=== PATIENT | male | born 1965 | race Caucasian/White ===

== ENCOUNTER 2019-11-20 16:54 | Emergency (ER) | payer OTHER, SELFPAY ==
--- NOTE | ~2019-11-20 | XR_ITS ---
XR elbow RT min 3V 11/20/2019 17:17 INDICATION: Right elbow pain PROCEDURE: 4 views right elbow COMPARISON: No prior studies for comparison. FINDINGS: Fracture, dislocation or subluxation is not identified. No significant joint effusion. The soft tissues appear within normal limits. No foreign bodies are identified. IMPRESSION: 1: NO ACUTE BONE OR JOINT ABNORMALITY IDENTIFIED. Reviewed, dictated and finalized at location A. [place] [facility]
[2019-11-20 16:59] VITALS: BP 160/90; PULSE 89; RESP 18; TEMP 36.4; O2SAT 100
--- NOTE | 2019-11-20 18:23 | ED.UPPEXIN ---
HPI - Extremity Injury (Upper) General Chief Complaint: Extremity Injury, Upper Stated Complaint: right elbow pain Time Seen by Provider: 11/20/19 17:25 Source: patient Mode of arrival: ambulatory Limitations: no limitations History of Present Illness HPI narrative: This is a 53-year-old male that presents the emergency department for right elbow pain after an injury 3 weeks ago. Reports he slipped and fell on ice and landed on his right elbow. Reports he has not been seen for this yet. Reports since he has had pain in the right elbow. Denies hitting his head, loss of consciousness, other injuries, decreased range of motion, or numbness. Related Data Allergies Allergy/AdvReac Type Severity Reaction Status Date / Time No Known Allergies Allergy Verified 11/20/19 17:32 Review of Systems Review of Systems: Narrative: CONSTITUTIONAL: Denies fever SKIN: Denies rash MUSCULOSKELETAL: Reports joint pain, and myalgia. NEUROLOGIC: Denies numbness, or weakness. All systems reviewed & are unremarkable except as noted in HPI and below PMFSH Past Medical History Medical History (Updated 11/20/19 @ 18:24 by Maureen Vazquez PA-C) Chronic back pain Chronic pain Infection of right knee Surgical History Surgical History (Updated 09/17/19 @ 15:29 by Brent Graves) History of facial surgery History of hernia surgery Social History Social History Smoking status: Current every day smoker Gender identity (if verbalized by the patient): Male Exam Narrative: Exam Narrative: GENERAL: Well-appearing, well-nourished, and in no acute distress. HEAD: Normocephalic, atraumatic. EYES: EOMI. EXTREMITIES: Normal range of motion. No edema or obvious deformity. Normal sensation. Normal radial pulses SKIN: Warm, dry, no rash. NEURO: No focal deficits. Alert and oriented x3. PSYCH: Normal mood and affect Course Vital Signs Vital signs: Vital Signs Temperature 97.5 F L 11/20/19 16:59 Pulse Rate 89 11/20/19 16:59 Respiratory Rate 18 11/20/19 16:59 Blood Pressure 160/90 H 11/20/19 16:59 Pulse Oximetry 100 11/20/19 16:59 Temperature 97.5 F L 11/20/19 16:59 Pulse Rate 89 11/20/19 16:59 Respiratory Rate 18 11/20/19 16:59 Blood Pressure 160/90 H 11/20/19 16:59 Pulse Oximetry 100 11/20/19 16:59 MDM - Extremity Injury (Upper) MDM Narrative Medical decision making narrative: Patient presents emergency department for right elbow pain after a fall 3 weeks ago. Right elbow x-ray is without acute changes. Patient was instructed to continue rest, ice and [id number] pain medication as needed. He is to follow-up with primary care doctor. He was given warnings to return to the ER Imaging Data Radiologist's impression: ITS Impressions Elbow X-Ray 11/20/19 17:18 IMPRESSION: 1: NO ACUTE BONE OR JOINT ABNORMALITY IDENTIFIED. Critical Care Time Critical Care Time Critical Care Time: No Discharge Plan Discharge Clinical Impression: Elbow pain, right Patient Disposition: Home, Self-Care Condition: Stable Instructions: Elbow Sprain (ED) Additional Instructions: Return to the emergency department if you experience fever, redness and swelling of your arm, numbness, or any other symptoms that are concerning to you Rest. Ice the area. Tylenol or ibuprofen as needed for pain Follow-up with primary care doctor Follow-up/Referrals: PHYSICIAN,PRODUCTION ASSEMBLER [Primary Care Provider] - Ozzy Madsen MD [Physician] - 1 Week Discharge Date/Time: 11/20/19 18:26
== END 2019-11-20 18:26 | disposition home or self-care (01) ==
PROVIDERS: Emergency Provider Emergency Medicine
DX: M25.521 Pain in right elbow (principal); F17.200 Nicotine dependence, unspecified, uncomplicated
CPT/HCPCS: 73080; 99283

== ENCOUNTER 2025-03-06 11:55 | Emergency (ER) | payer BC, SELFPAY ==
--- NOTE | ~2025-03-06 | XR_ITS ---
XR ankle LT min 3V, XR tibia fibula LT 2V 03/06/2025 12:46 Indication: Status post fall. Left ankle pain. Procedure: 4 views left ankle and 2 views left tibia/fibula Comparison: No prior studies for comparison. Findings: There is an oblique distal fibular metaphyseal fracture which is nondisplaced. Mild degener ative changes of the ankle. Talar dome is unremarkable. Impression: 1: Oblique nondisplaced distal fibular fracture. Reviewed, dictated and finalized at location A. Impression: 1: Oblique nondisplaced distal fibular fracture. Impression: 1: Oblique nondisplaced distal fibular fracture.
[2025-03-06 12:08] VITALS: BP 150/88; PULSE 90; RESP 16; TEMP 36.4; O2SAT 98
[2025-03-06 13:25] VITALS: BP 171/100; PULSE 82; RESP 18; TEMP 36.6; O2SAT 97
--- NOTE | 2025-03-06 13:33 | ED_ITS ---
HPI - General Adult General Chief complaint: Extremity Injury, Lower Stated complaint: L leg injury Time Seen by Provider: 03/06/25 13:26 History of Present Illness HPI narrative: 59-year-old male presented to the emergency department for evaluation for a left lateral leg injury. Patient states he fell asleep standing up and injured his left leg. Patient denies striking his head denies loss of consciousness. Patient states that this is not unusual for him. Patient denies any other pain or injury. Patient denies any pain in the proximal tib-fib or of the affected foot. [facility] Related Data Allergies Allergy/AdvReac Type Severity Reaction Status Date / Time No Known Allergies Allergy Verified 03/06/25 11:57 Review of Systems Review of Systems: All systems reviewed & are unremarkable except as noted in HPI and below PMFSH Past Medical History Medical History (Updated 03/06/25 @ 13:38 by Jose Olea MD) Infection of right knee Chronic back pain Chronic pain Surgical History Surgical History (Updated 09/17/19 @ 15:29 by Brent Graves) History of hernia surgery History of facial surgery Social History Social History Smoking status: Current every day smoker Gender identity (if verbalized by the patient): Male Exam Narrative: APPEARANCE: Well appearing, no pain, no distress, well-nourished. HEAD: normocephalic, atraumatic. EYES: PERRLA/EOMI, conjunctivae clear. NOSE: Normal no drainage EARS:TMS clear with good light reflex. THROAT: Pharynx clear, no exudate. NECK: Supple. No adenopathy, no masses. RESPIRATORY: Airway patent, respirations nonlabored. Clear to auscultation bilaterally, no rales, rhonchi, wheezing. CARDIOVASCULAR: Regular rate and rhythm without murmurs rubs or gallops. ABDOMINAL: Soft, nontender, nondistended, normal bowel sounds MUSCULOSKELETAL: Left lower leg tenderness to palpation at the level of the ankle with no tenderness to proximal tib-fib, no tenderness to the left foot and patient is neurovascularly intact NEURO: Alert. Cranial nerves II through XII intact. Good gait. Good coordination SKIN: No injury to skin or lacerations Course Vital Signs Vital signs: Vital Signs Temperature 97.6 F 03/06/25 12:08 Pulse Rate 90 03/06/25 12:08 Respiratory Rate 16 03/06/25 12:08 Blood Pressure 150/88 H 03/06/25 12:08 Pulse Oximetry 98 03/06/25 12:08 Oxygen Delivery Room Air 03/06/25 12:08 Temperature 98 F 03/06/25 13:25 Pulse Rate 82 03/06/25 13:25 Respiratory Rate 18 03/06/25 13:25 Blood Pressure 171/100 H 03/06/25 13:25 Pulse Oximetry 97 03/06/25 13:25 Oxygen Delivery Room Air 03/06/25 12:08 Medical Decision Making MDM Narrative Medical decision making narrative: 59-year-old male present to the emergency department for evaluation for an injury to his left lateral lower leg. Patient does have an oblique fracture of his distal fibula with no other acute fracture or dislocations. Patient denies any pain or injury. Patient was placed in a short-leg posterior splint provided crutches for nonweightbearing. Patient was provided outpatient follow-up with Orthopedics and patient also does follow-up with the [facility]. Patient was comfortable with the plan for discharge and close follow-up. Patient was updated on results of the imaging and strongly encouraged to have follow-up so that his leg does heal properly. All questions concerns were addressed. Differential Diagnosis Differential Diagnosis: Fib fracture, tip fracture, ankle fracture, ankle sprain Vital Signs Vital Signs: Vital Signs Temperature 97.6 F 03/06/25 12:08 Pulse Rate 90 03/06/25 12:08 Respiratory Rate 16 03/06/25 12:08 Blood Pressure 150/88 H 03/06/25 12:08 Pulse Oximetry 98 03/06/25 12:08 Oxygen Delivery Room Air 03/06/25 12:08 Temperature 98 F 03/06/25 13:25 Pulse Rate 82 03/06/25 13:25 Respiratory Rate 18 03/06/25 13:25 Blood Pressure 171/100 H 03/06/25 13:25 Pulse Oximetry 97 03/06/25 13:25 Oxygen Delivery Room Air 03/06/25 12:08 Imaging Data Radiologist's impression: Impressions Ankle X-Ray 03/06/25 12:47 Impression: 1: Oblique nondisplaced distal fibular fracture. Tibia/Fibula X-Ray 06/06/25 12:47 Impression: 1: Oblique nondisplaced distal fibular fracture. Discharge Plan Discharge Clinical Impression: Closed left fibular fracture Patient Disposition: Home Condition: Stable Instructions: Antibiotic Form, Crutch Instructions (ED), Splint Care (ED) Additional Instructions: Splint care as directed. Crutches for nonweightbearing. [facility] and have close follow-up with an orthopedic surgeon. Patient Language: Finnish Follow-up/Referrals: PHYSICIAN,INFRASTRUCTURE CONSULTANT [Non-Staff] - Keon Montenegro MD [Physician] -
== END 2025-03-06 14:32 | disposition home or self-care (01) ==
LOC: ANHED 13:59
PROVIDERS: Emergency Provider Emergency Medicine
DX: S82.832A Other fracture of upper and lower end of left fibula, initial encounter for closed fracture (principal); F17.210 Nicotine dependence, cigarettes, uncomplicated; W18.39XA Other fall on same level, initial encounter
CPT/HCPCS: 29515; 73590; 73610; 99284